=== PATIENT | female | born 1935 | race Caucasian/White ===

== ENCOUNTER → 2016-05-09 | Outpatient (CLI) | payer MEDICARE, BC ==
[~2016-05-09] MED LIST: ALBU8.5H6 IH; AMLO10TA2 PO; CALC-98 PO; HYDR-2672 PO; HYDR12.58 PO; OMEP20CA5 PO; PROAIR HFA8.5 GM INH; SIMV40TA3 PO
--- NOTE | 2016-05-09 12:23 | RAD ---
Indication follow-up lung cancer. Status post radiation therapy. Axial noncontrast images of the chest were obtained and are compared to an examination one year earlier. Imaging through the upper abdomen is unremarkable. Renal cysts are noted. Clips are seen in the gallbladder fossa. The thoracic aorta appears unremarkable. Coronary artery calcification is noted. Significant hilar or mediastinal adenopathy is not seen. There is some scarring at the right lung apex appears similar. A nodule is noted in the right lower lobe also appearing similar. Since the prior examination there has been significant collapse of a midthoracic vertebral body segment. There are new upper right posterior rib fractures. IMPRESSION: Stable chest.. No acute finding. No evidence of tumor recurrence or metastatic disease. New marked compression deformity associated with a midthoracic vertebral body segment. PQRS Compliance Statement: One or more of the following individualized dose reduction techniques were utilized for this examination: 1. Automated exposure control 2. Adjustment of the mA and/or kV according to patient size 3. Use of iterative reconstruction technique
== END | disposition home or self-care (01) ==
LOC: CT 09:57
PROVIDERS: ATTEND Radiology Radiation Oncology
DX: C34.90 Malignant neoplasm of unspecified part of unspecified bronchus or lung (principal)
CPT/HCPCS: 71250

== ENCOUNTER → 2017-06-24 | Outpatient (CLI) | payer MEDICARE, BC | END | disposition home or self-care (01) | LOC: CT 09:09 | DX: M51.34 Other intervertebral disc degeneration, thoracic region (principal); N28.1 Cyst of kidney, acquired; I25.10 Atherosclerotic heart disease of native coronary artery without angina pectoris; I70.0 Atherosclerosis of aorta; R91.8 Other nonspecific abnormal finding of lung field; Z85.118 Personal history of other malignant neoplasm of bronchus and lung; Z92.3 Personal history of irradiation | CPT/HCPCS: 71250 ==